=== PATIENT | male | born 1985 | race Caucasian/White ===

== ENCOUNTER 2016-03-28 14:27 | Emergency (ER) | payer MEDICAID ==
[~2016-03-28 14:27] MED LIST: Sodium Chloride 0.9% 1,000 ML BAG ONE
[2016-03-28] MEDS ORDERED: Ondansetron HCl/PF 4 MG/2 ML Vial ONE (15:00)
[2016-03-28 15:06] LABS: #Basophils 0.1 thou/uL (0.0-0.2); #Eosinphils 0.4 thou/uL (0.0-0.7); #Lymphocytes 1.6 thou/uL (1.20-3.40); #Monocytes 0.6 thou/uL (0.11-0.59); #Neutrophils 5.8 thou/uL (1.40-6.50); %Basophils 0.9 % (0.0-1.0); %Eosinophils 5.2 % (0.0-10.0); %Lymphocytes 19.1 % (21.0-51.0); %Monocytes 6.4 % (0.0-10.0); %Neutrophils 68.3 % (42.0-75.0); Hemoglobin 15.8 g/dL (14.0-18.0); Mean Corpuscular HGB CONC 33.4 g/dL (32.0-36.0); Mean Corpuscular Hemoglobin 29.7 pg (27.0-31.0); Mean Corpuscular Volume 88.8 fl (80.0-94.0); Mean Platelet Volume 7.8 fL (7.4-10.4); Platelet Count 246 thou/uL (130-400); RBC Distribution Width 11.9 % (11.5-14.5); Red Blood Cell (RBC) Count 5.33 mill/uL (4.70-6.10); White Blood Cell (WBC) Count 8.5 thou/uL (4.8-10.8)
[2016-03-28 15:22] LABS: ALT (SGPT) 15 U/L (0-55); AST (SGOT) 17 U/L (5-34); Acetaminophen Less than 3.0 mcg/mL (10.0-30.0); Albumin 4.7 g/dL (3.5-5.0); Alcohol Less than 10 mg/dL (Less than 10); Alkaline Phosphatase 52 U/L (40-150); Anion Gap 18 mmol/L (10-20); BUN (Urea Nitrogen) 12 mg/dL (8.9-20.6); Bilirubin, Total 0.4 mg/dL (0.2-1.2); Calc. Creatinine Clearance 0 mL/min (70-130); Calcium 9.5 mg/dL (7.8-10.44); Carbon Dioxide 23 mmol/L (22-29); Chloride 104 mmol/L (98-107); Estimated GFR-MDRD 79; Globulin 2.4 g/dL (2.4-3.5); Glucose 102 mg/dL (70-105); Potassium 3.7 mmol/L (3.5-5.1); Protein, Total 7.1 g/dL (6.0-8.3); Salicylate Less than 5.0 mg/dL (15.0-30.0); Sodium 141 mmol/L (136-145)
[2016-03-28 15:23] LABS: Bilirubin Negative (Negative); Blood, Urine Negative (Negative); Clarity Clear (Clear); Glucose, Urine (Dipstick) Negative (Negative); Leukocyte Negative (Negative); Nitrite Negative (Negative); Protein, Urine (Dipstick) Negative (Neg-Trace); Urobilinogen 0.2 mg/dL (0.2-1.0); pH, Urine 7.5 (5.0-9.0)
[2016-03-28 15:51] LABS: Amphetamine Not Detected (NotDetected); Barbiturates Screen Not Detected (NotDetected); Benzodiazepine Screen Not Detected (NotDetected); Cocaine Metabolite Screen Not Detected (NotDetected); Medtox Control Line Valid? VALID (VALID); Methadone Not Detected (NotDetected); Methamphetamine Not Detected (NotDetected); Opiate Screen Not Detected (NotDetected); Oxycodone Screen Not Detected (NotDetected); Phencyclidine (PCP) Not Detected (NotDetected); THC/Cannabinoid Screen Detected (NotDetected); Tricyclic Screen Not Detected (NotDetected)
--- NOTE | 2016-03-28 23:11 | ERRECORD ---
[facility] EMERGENCY RECORD HPI OVERDOSE (15:35 LHOD) CHIEF COMPLAINT: Patient presents for evaluation of overdose, Intentional suicide attempt, of REMERON, Amount ingested: 15, taken orally, Date and time of ingestion: 03/28--. HISTORIAN: History provided by patient. TIME COURSE: PT REPORTS HE WALKED IN ER HE TOOK 15 15MG REMERON TABLETS TO KILL HIMSELF. DENIES ANY OTHER DRUGS OR ALCOHOL. REPORTS HE IS UPSET ABOUT HIS LIFE AND LIVING NEAR HIS EX-. ASSOCIATED WITH: Associated with depression. ROS (16:08 LHOD) CONSTITUTIONAL: Historian denies fever. EYES: WEARS GLASSES. CARDIOVASCULAR: Historian denies chest pain. RESPIRATORY: Historian denies shortness of breath. GI: Historian denies abdominal pain, denies nausea, denies vomiting. MUSCULOSKELETAL: Negative musculoskeletal review of systems. SKIN: Historian denies rash. NEUROLOGIC: Historian denies focal weakness, denies headache. HEMO/LYMPHATIC: Historian denies easy bruising. PSYCHIATRIC: Historian denies alcohol abuse, reports depression, reports suicidal ideation. NOTES: All systems reviewed, negative except as described above. PAST MEDICAL HISTORY MEDICAL HISTORY: Notes: VERIFIED 03-28-16, Past medical history includes history of hypertension. hydrocephalus. (14:41 JPER) MALE SURGICAL HISTORY: VERIFIED 03-28-16, CROSSED EYE REPAIR. WISDOM TEETH REMOVAL.. HEAD shunt with removal. (14:41 JPER) PSYCHIATRIC HISTORY: Notes: VERIFIED 03-28-16, Psychiatric history includes, schizophrenia, PARANOIA, Psychiatric history includes, bipolar disorder. MULTIPLE SUICIDE IDEATION... (14:41 JPER) SOCIAL HISTORY: Social History includes VERIFIED 03-28-16, Patient currently uses drugs, abuses marijuana, Patient currently uses tobacco, Patient smokes cigarettes, Patient smokes 1/2 packs per day, Patient denies alcohol use,. (14:41 JPER) NOTES: Nursing records reviewed, REPORTS HX OF DEPRESSION WITHOUT PREVIOUS HOSPITALIZATION ALTHOUGH HE REPORTS HE WANTED TO BE 1 YEAR AGO. SEE PSYCHIATRIST AT [facility] HERE IN [place]. (16:21 LHOD) KNOWN ALLERGIES ALLERGIES: (Unconfirmed) No Known Drug Allergies No Known Drug Allergy (Unconfirmed) &a-1R&a+25V*p+0X*[id number]*c202B*c15G*c2P*p-0X&a-25V&a+1R Name: Paul Alexandre : 1985 M31 MedRec: [id number] AcctNum: [id number] Prepared: SatMar 28, 2016 23:15 by Interface Page 1 of 4 pMD [facility] EMERGENCY RECORD CURRENT MEDICATIONS (14:58 JPER) Cymbalta: CAPSULE,DELAYED RELEASE (ENTERIC COATED) : Strength - 60 mg : ORAL Patient Dose: 60 mg Oral once a day. Geodon: CAPSULE : Strength - 80 mg : ORAL Patient Dose: 80 mg Oral 2 times a day. lithium carbonate: CAPSULE : Strength - 150 mg : ORAL Patient Dose: 2 times a day (before meals). Remeron: TABLET : Strength - 15 mg : ORAL Patient Dose: once a day (in the morning). VITAL SIGNS VITAL SIGNS: BP: 144/90, Pulse: 96, Resp: 20, Temp: 98.2 (Tympanic), O2 sat: 99 on Room Air, Time: 03/28/2016 14:39. (14:39 JPER) BP: 139/87, Pulse: 80, Resp: 20, Temp: 98.2 (Tympanic), O2 sat: 98 on Room Air, Time: 03/28/2016 15:00. (15:00 JPER) BP: 143/73, Pulse: 90, Resp: 20, O2 sat: 99 on Room Air, Time: 03/28/2016 15:30. (15:30 JPER) BP: 111/71, Pulse: 96, Resp: 18, O2 sat: 99 on Room Air, Time: 03/28/2016 16:00. (16:00 JPER) BP: 131/71, Pulse: 83, Resp: 28, O2 sat: 98 on Room Air, Time: 03/28/2016 16:30. (16:30 JPER) BP: 140/74, Pulse: 98, Resp: 26, Temp: 98.4 (Tympanic), O2 sat: 98 on Room Air, Time: 03/28/2016 17:00. (17:00 JPER) BP: 118/66, Pulse: 73, Resp: 25, O2 sat: 98 on Room Air, Time: 03/28/2016 17:30. (17:30 JPER) BP: 142/91, Pulse: 67, Resp: 24, O2 sat: 99 on Room Air, Time: 03/28/2016 20:10. (20:10 CJEF) BP: 119/76, Pulse: 71, Resp: 24, Temp: 98.4 (Oral), Pain: 0, O2 sat: 99 on Room Air, Time: 03/28/2016 18:15. (18:15 CJEF) PHYSICAL EXAM (16:15 LHOD) CONSTITUTIONAL: Vital signs reviewed, Patient afebrile, Pulse normal, Blood pressure normal, Respiratory rate normal, Patient appears non toxic, Patient alert and oriented to person, place and time, AWAKE, ALERT. HEAD: Head exam included findings of head atraumatic. EYES: Pupils equally round and reactive to light, Extraocular muscles intact. ENT: Pharynx exam normal. NECK: Neck exam included findings of normal range of motion, Trachea midline. RESPIRATORY CHEST: Respiratory exam included findings of no respiratory distress, Breath sounds clear. CARDIOVASCULAR: Cardiovascular exam included findings of heart &a-1R&a+25V*p+0X*[id number]*c202B*c15G*c2P*p-0X&a-25V&a+1R Name: Paul Alexandre : 1985 M31 MedRec: [id number] AcctNum: [id number] Prepared: SatMar 28, 2016 23:15 by Interface Page 2 of 4 pMD [facility] EMERGENCY RECORD rate regular rate and rhythm, Heart sounds normal. ABDOMEN MALE: Abdominal exam included findings of abdomen nontender, Bowel sounds normal. BACK: Back exam normal. UPPER EXTREMITY: Upper extremity exam normal. LOWER EXTREMITY: Lower extremity exam normal. NEURO: Neuro exam findings include patient oriented to person, place and time, Speech normal, Memory normal. SKIN: no rash. PSYCHIATRIC: Psychiatric exam included findings of patient oriented to person place and time, Normal affect, Suicidal ideations present, has a plan, PILL INGESTION, No homicidal ideations. EKG INTERPRETATION (16:22 LHOD) 12 LEAD EKG INTERPRETATION: 12 lead EKG interpreted by Emergency Department Physician at time of study, 12 lead EKG shows normal sinus rhythm, Rate (beats per minute): 97, with no ectopics, T waves, flattened, DIFFUSE NON-SPECIFIC FLATTENING OF T WAVES, [place] normal. MEDICATION ADMINISTRATION SUMMARY Drug Name: Zofran intravenous, Dose Ordered: 8 mg, Route: IV Push, Status: Given, Time: 15:31 03/28/2016, Drug Name: Normal Saline, Dose Ordered: 150 mL/hr, Route: IV Fluid Infusion, Status: Given, Time: 15:15 03/28/2016, Drug Name: activated charcoal oral, Dose Ordered: 30 g, Route: Oral, Status: Given, Time: 14:59 03/28/2016, Detailed record available in Medication Service section. DOCTOR NOTES (16:07 LHOD) TEXT: 1606--PT STABLE. ADVISED HE WILL BE OBSERVED A FULL 2 HOURS PRIOR TO CALLING PSYCH SUPPLIER ENGINEER. 2012--[facility]DHA WITH [facility] CONTACTING [facility] FOR POSSIBLE ADMISSION. PT SITTING ON STRETCHER, DRINKING GATORADE. 2119--STILL AWAITING [facility] APPROVAL FOR TRANSFER. PROBLEM LIST No recorded problems DIAGNOSIS (21:26 LHOD) FINAL: PRIMARY: SUICIDAL IDEATION WITH NON-TOXIC INGESTION OF REMERON. PRESCRIPTION No recorded prescriptions DISPOSITION PATIENT: Disposition Type: Transfer, Disposition: [facility] &a-1R&a+25V*p+0X*[id number]*c202B*c15G*c2P*p-0X&a-25V&a+1R Name: Paul Alexandre : 1985 [facility] [place] MedRec: [id number] AcctNum: [id number] Prepared: SatMar 28, 2016 23:15 by Interface Page 3 of 4 pMD [facility] EMERGENCY RECORD Behavioral Health, Condition: Good. (21:26 LHOD) Disposition Transport: Police. (23:07 ADEA) Patient left the department. (23:07 ADEA) Scott: CHALINO=JOVANNI Orta, Jaime GODWIN=JOVANNI Stanton, Kendy EVANS=JOVANNI Vizcaino, Meenakshi LHOD=MD Kerrie, Ezra &a-1R&a+25V*p+0X*[id number]*c202B*c15G*c2P*p-0X&a-25V&a+1R Name: Paul Alexandre : 1985 M31 MedRec: [id number] AcctNum: [id number] Prepared: Chung Mar 28, 2016 23:15 by Interface Page 4 of 4 pMD MTDD
--- NOTE | 2016-03-28 23:17 | PICIS ---
[facility] EMERGENCY RECORD COMMUNICATIONS (21:25 LHOD) COMMUNICATIONS: Notes: 2124--DISCUSSED WITH ROCK HINDS, PSYCHIATRIST, ,ACCEPTS FOR TRANSFER. TRIAGE (14:41 JPER) PATIENT: AGE: 31, GENDER: male, : Sat1985, TIME OF GREET: SatMar 28, 2016 14:29, PREFERRED LANGUAGE: Luxembourgish, RACE: WHITE, ETHNICITY: Not or , ECODE BILLING MAP: [facility], SSN: [id number], Zip Code: [address], KG WEIGHT: 74.84 (est.), PHONE: , , , PERSON ID: [id number], PCP: NO PCP. (14:41 JPER) NAME: Baldomero Paul RobbinsSergei (15:14) COMPLAINT: TOOK A HAND FULL OF PILLS. (14:41 JPER) ADMISSION: URGENCY: 3 Urgent, ADMISSION SOURCE: Home, TRANSPORT: Walk-in, BED: ED -01. (14:41 JPER) ASSESSMENT: Assessment: PT SAYS HE IS SUICIDAL AND HAS BEEN X 2 WEEKS; SAYS HE SWALLOWED APPROX 15 15MG REMERON PILLS ABOUT 45 MIN PAST. (14:41 JPER) IMMUNIZATIONS: Flu vaccine not up to date, Tetanus not up to date, Pneumococcal vaccine not up to date. (14:41 JPER) SIRS SCORING: Heart Rate 55-109 (0), Temp range 96.8-101.1 (0), respiratory rate 12-24 (0), Mental Status altered: no (0). (14:41 JPER) TRIAGE SCREENING: Suicide risk, Unable to assess, SAYS HE IS SUICIDAL. (14:41 JPER) PROVIDERS: TRIAGE NURSE: Meenakshi Vizcaino RN. (14:41 JPER) VITAL SIGNS: BP 144/90, Pulse 96, Resp 20, Temp 98.2, (Tympanic), O2 Sat 99, on Room Air, Time 03/28/2016 14:39. (14:39 JPER) PREVIOUS VISIT ALLERGIES: ALLERGIES:. (14:41 JPER) KNOWN ALLERGIES ALLERGIES: (Unconfirmed) No Known Drug Allergies No Known Drug Allergy (Unconfirmed) CURRENT MEDICATIONS (14:58 JPER) Cymbalta: CAPSULE,DELAYED RELEASE (ENTERIC COATED) : Strength - 60 mg : ORAL Patient Dose: 60 mg Oral once a day. Geodon: CAPSULE : Strength - 80 mg : ORAL Patient Dose: 80 mg Oral 2 times a day. lithium carbonate: CAPSULE : Strength - 150 mg : ORAL Patient Dose: 2 times a day (before meals). Remeron: TABLET : Strength - 15 mg : ORAL Patient Dose: once a day (in the morning). &a-1R&a+25V*p+0X*m7354O*c202B*c15G*c2P*p-0X&a-25V&a+1R Name: Paul Alexandre : 1985 M31 MedRec: [id number] AcctNum: [id number] Prepared: SatMar 28, 2016 23:22 by Interface Page 1 of 12 pMD [facility] EMERGENCY RECORD VITAL SIGNS VITAL SIGNS: BP: 144/90, Pulse: 96, Resp: 20, Temp: 98.2 (Tympanic), O2 sat: 99 on Room Air, Time: 03/28/2016 14:39. (14:39 JPER) BP: 139/87, Pulse: 80, Resp: 20, Temp: 98.2 (Tympanic), O2 sat: 98 on Room Air, Time: 03/28/2016 15:00. (15:00 JPER) BP: 143/73, Pulse: 90, Resp: 20, O2 sat: 99 on Room Air, Time: 03/28/2016 15:30. (15:30 JPER) BP: 111/71, Pulse: 96, Resp: 18, O2 sat: 99 on Room Air, Time: 03/28/2016 16:00. (16:00 JPER) BP: 131/71, Pulse: 83, Resp: 28, O2 sat: 98 on Room Air, Time: 03/28/2016 16:30. (16:30 JPER) BP: 140/74, Pulse: 98, Resp: 26, Temp: 98.4 (Tympanic), O2 sat: 98 on Room Air, Time: 03/28/2016 17:00. (17:00 JPER) BP: 118/66, Pulse: 73, Resp: 25, O2 sat: 98 on Room Air, Time: 03/28/2016 17:30. (17:30 JPER) BP: 142/91, Pulse: 67, Resp: 24, O2 sat: 99 on Room Air, Time: 03/28/2016 20:10. (20:10 CJEF) BP: 119/76, Pulse: 71, Resp: 24, Temp: 98.4 (Oral), Pain: 0, O2 sat: 99 on Room Air, Time: 03/28/2016 18:15. (18:15 CJEF) NURSING ASSESSMENT: PSYCH/SOCIAL (14:45 JPER) CONSTITUTIONAL: Patient arrives ambulatory, Gait steady, History obtained from patient, Patient appears comfortable, Patient cooperative, Patient alert, Oriented to person, place and time, Skin warm, Skin dry, Skin normal in color, Mucous membranes pink, Mucous membranes moist, Patient complains of STATED INGESTED APPROX #15 15 MG REMERON. PSYCH/SOCIAL: Psychiatric/social assessment findings include affect normal, Suicidal ideations present, with plan, INGESTION. SUICIDE RISK ASSESSMENT TOOL: Suicide Risk Assessment findings: Mental State (Moderate risk):, moderate depression, some sadness, some symptoms of psychosis, some feelings of hopelessness, moderate anger, hostility, Suicide Attempt or Suicidal Thoughts (Moderate risk):, multiple attempts of low lethality, Substance Disorder (Moderate risk):, risk of substance intoxication, abuse or dependence, Corroborative History (Moderate risk):, access to some information, some doubts to plausibility of person's account of events, Strengths and Support (Moderate risk):, moderate connectedness, few relationships, Reflective Practice (High risk):, high changeability, no rapport established with patient, not able to engage patient, Suicide Risk: Moderate:, charge nurse notified, This person's risk level is highly changeable, There are factors that indicate a level of uncertainty in this risk assessment, indicating a &a-1R&a+25V*p+0X*j9992O*c202B*c15G*c2P*p-0X&a-25V&a+1R Name: Paul Alexandre : 1985 M31 MedRec: [id number] AcctNum: [id number] Prepared: SatMar 28, 2016 23:22 by Interface Page 2 of 12 pMD [facility] EMERGENCY RECORD low assessment confidence. NOTES: Emotional support needed and given, Patient tolerated procedure well. NURSING PROCEDURE: AIRPLANE MECHANIC (14:45 JPER) PATIENT IDENTIFIER: Patient's identity verified by patient stating name, Patient's identity verified by hospital ID bracelet. AIRPLANE MECHANIC: Cardiac monitoring indicated for INGESTION, Patient placed on night monitor, Heart rate: 100, Patient placed on non-invasive blood pressure monitor, with disposable blood pressure cuff applied, Patient placed on continuous pulse oximetry, Adult/pediatric oxisensor applied, Oxygen saturation 98%. FOLLOW-UP: After procedure, alarms set and on, After procedure, patient tolerating monitoring. NOTES: Emotional support needed and given, Patient tolerated procedure well. NURSING PROCEDURE: COMMUNICATIONS COMMUNICATIONS: Psychiatric screening consult, Name of screener MEL, [facility] PHONED REQUESTED SCREENER, Crisis counselor, Notes: 1745 MEL FROM [facility] ON SCENE. (17:00 JPER) Notes: [facility] contacted by Mel with [facility] for placement, lab work faxed per request. (18:40 ADEA) Notes: DR AGUIRRE WITH [facility] ACCEPTING PATIENT WITH LIU BOYKIN. (21:25 ADEA) NURSING PROCEDURE: EKG CHART (15:34 JPER) PATIENT IDENTIFIER: Patient's identity verified by patient stating name, Patient's identity verified by hospital ID bracelet. EK lead EKG performed on the left chest, done by FRANKO BAIG, first EKG. FOLLOW-UP: After procedure, EKG for interpretation given to Dr. SY. NOTES: Emotional support needed and given, Patient tolerated procedure well. NURSING PROCEDURE: INTAKE AND OUTPUT (19:08 MCRS) INTAKE AND OUTPUT: Total Intake (ml): 0ml, Urine output(ml): 1500, Total Output (ml): 1500ml, Grand Total: Output is greater than intake by 1500mls. SAFETY: Side rails up, Cart/Stretcher in lowest position, Family at bedside, Call light within reach, Hospital ID band on. NURSING PROCEDURE: IV PATIENT IDENITIFIER: Patient's identity verified by patient stating name, Patient's identity verified by hospital ID bracelet. (15:10 JPER) IV SITE 1: IV therapy indicated for hydration, Saline lock established, Labs drawn at time of placement, labeled in the presence of the patient and sent to lab. (15:10 JPER) &a-1R&a+25V*p+0X*l2342O*c202B*c15G*c2P*p-0X&a-25V&a+1R Name: Paul Alexandre : 1985 M31 MedRec: [id number] AcctNum: [id number] Prepared: SatMar 28, 2016 23:22 by Interface Page 3 of 12 pMD [facility] EMERGENCY RECORD FOLLOW-UP SITE 1: After procedure, sterile transparent dressing applied. (15:10 JPER) IV discontinued, by patient, catheter intact, Notes: ANGRY WITH [facility] - MD APPLIED DRESSING - BLEEDING CONTROLED. (18:30 MCRS) NURSING PROCEDURE: NURSE NOTES NURSES NOTES: Notes: PT COOPERATIVE WITH CARE; RESTING ON GURNEY; VSS. (16:00 JPER) Notes: PATIENT REFUSING VITAL SIGNS AND PULLED IV OUT.. ANGRY WITH MR WORKER... NO AGGRESSIVE BEHAVIOR AT THIS TIME. (19:06 MCRS) Notes: WAITING FOR ACCEPTANCE TO INSTITUTION FOR MENTAL HEALTH EVAL AND TREAT.. ALLOWED VITAL SIGNS TO BE TAKEN - DRESSED AND WAITING ON STRETCHER.. (20:13 MCRS) Notes: patient accepted at [facility]... (21:25 MCRS) Notes: PENDING ARRIVAL OF TRANSPORT DEPUTY. (21:53 ADEA) Notes: transport from [facility] arrived and took custody of patient for transfer to [facility].. ambulated out of ER with no distress... (22:43 MCRS) NURSING PROCEDURE: TRANSFER (21:43 ADEA) TRANSFER: Reason for transfer need for specialized care, Diagnosis: BIPOLAR DISORDER WITH SUICIDAL IDEATIONS, Accepting institution: [facility], Accepting physician: TIMOTHY, Referring physician: Kerrie, Transported by, [facility], Report called to receiving facility, PATT, Provided opportunity to answer questions. ORDER DETAILS Order Name: Acetaminophen, Status: Active, Time: 14:52 03/28/2016, User: LHOD, - Ordered for: MD Sy Lefayne, - Entered by: MD Sy Lefayne - SatMar 28, 2016 14:52, - Quantity: 1, Order Name: Alcohol, Status: Active, Time: 14:52 03/28/2016, User: TOM, - Ordered for: MD Sy Lefayne, - Entered by: MD Sy Lefayne - SatMar 28, 2016 14:52, - Quantity: 1, Order Name: AIRPLANE MECHANIC ED, Status: Done, Time: 15:11 03/28/2016, User: CRISTINA, - Ordered for: MD Sy Lefayne, - Entered by: MD Sy Lefayne - SatMar 28, 2016 14:50, - Quantity: 1, Order Name: CBC with Differential, Status: Active, Time: 14:50 03/28/2016, User: TOM, - Ordered for: MD Sy Lefayne, - Entered by: MD Sy Lefayne - SatMar 28, 2016 14:50, &a-1R&a+25V*p+0X*e3161E*c202B*c15G*c2P*p-0X&a-25V&a+1R Name: Paul Alexandre : 1985 M31 MedRec: [id number] AcctNum: [id number] Prepared: SatMar 28, 2016 23:22 by Interface Page 4 of 12 pMD [facility] EMERGENCY RECORD - Quantity: 1, Order Name: Comprehensive Metabolic Panel, Status: Active, Time: 14:50 03/28/2016, User: TOM, - Ordered for: MD Sy Lefayne, - Entered by: MD Sy Lefayne - SatMar 28, 2016 14:50, - Quantity: 1, Order Name: Drug Screen, Urine, Status: Active, Time: 14:52 03/28/2016, User: TOM, - Ordered for: MD Sy Lefayne, - Entered by: MD Sy Lefayne - SatMar 28, 2016 14:52, - Quantity: 1, Order Name: EKG 12 Lead in Emergency Room, Status: Active, Time: 14:50 03/28/2016, User: TOM, - Ordered for: MD Sy Lefayne, - Entered by: MD Sy Lefayne - SatMar 28, 2016 14:50, - Quantity: 1, Order Name: Salicylate, Status: Active, Time: 14:52 03/28/2016, User: TOM, - Ordered for: MD Sy Lefayne, - Entered by: MD Sy Lefayne - SatMar 28, 2016 14:52, - Quantity: 1, Order Name: SALINE LOCK, Status: Done, Time: 15:11 03/28/2016, User: CRISTINA, - Ordered for: MD Sy Lefayne, - Entered by: MD Sy Lefayne - SatMar 28, 2016 14:50, - Quantity: 1, Order Name: Urinalysis w/ Rflx Microscopic, Status: Active, Time: 14:52 03/28/2016, User: TOM, - Ordered for: MD Sy Lefayne, - Entered by: MD Sy Lefayne - SatMar 28, 2016 14:52, - Quantity: 1. MEDICATION ADMINISTRATION SUMMARY Drug Name: Zofran intravenous, Dose Ordered: 8 mg, Route: IV Push, Status: Given, Time: 15:31 03/28/2016, Drug Name: Normal Saline, Dose Ordered: 150 mL/hr, Route: IV Fluid Infusion, Status: Given, Time: 15:15 03/28/2016, Drug Name: activated charcoal oral, Dose Ordered: 30 g, Route: Oral, Status: Given, Time: 14:59 03/28/2016, Detailed record available in Medication Service section. MEDICATION SERVICE activated charcoal oral: Order: activated charcoal oral (activated charcoal) - Dose: 30 g : Oral Ordered by: Ezra Sy MD Entered by: Ezra Sy MD SatMar 28, 2016 14:50 Documented as given by: Meenakshi Vizcaino RN SatMar 28, 2016 14:59 Patient, Medication, Dose, Route and Time verified prior to administration. &a-1R&a+25V*p+0X*y0845F*c202B*c15G*c2P*p-0X&a-25V&a+1R Name: Paul Alexandre : 1985 M31 MedRec: [id number] AcctNum: [id number] Prepared: SatMar 28, 2016 23:22 by Interface Page 5 of 12 pMD [facility] EMERGENCY RECORD Amount given: 30GM, Site: Medication administered P.O., Correct patient, time, route, dose and medication confirmed prior to administration, Patient advised of actions and side-effects prior to administration, Allergies confirmed and medications reviewed prior to administration, Administered by FRANKO BAIG, Patient in position of comfort, Side rails up, Cart in lowest position. : Follow Up : Response assessment performed, No signs or symptoms of allergic reaction noted, No change in symptoms. (22:43 MCRS) Normal Saline: Order: Normal Saline (0.9 % sodium chloride) - Dose: 150 mL/hr : IV Fluid Infusion Ordered by: Ezra Sy MD Entered by: Ezra Sy MD SatMar 28, 2016 14:51 Documented as given by: Meenakshi Vizcaino RN SatMar 28, 2016 15:15 Patient, Medication, Dose, Route and Time verified prior to administration. Amount given: 1000ML, IV SITE #1 IV fluids established for hydration, IV SITE #1 into left antecubital, IV SITE #1 1st bag hung, amount 1 Liter hung, IV SITE #1 Rate of infusion (non-bolus) Infusing at 150 ml/hr, via primary tubing, IV SITE #1 on IV pump, Administered by FRANKO BAIG. : Follow Up : Response assessment performed, No signs or symptoms of allergic reaction noted, No change in symptoms, _IV SITE #1:_, on SatMar 28, 2016 18:33, Total infusion time IV site 1 3 hours, 20 minutes, ., IV fluid infusion discontinued, on SatMar 28, 2016 18:33, Total fluid hydration time IV site 1 3 hours, 20 minutes, ., Total amount infused: 450, IV Discontinued with catheter intact. (18:33 MCRS) Zofran intravenous: Order: Zofran intravenous (ondansetron HCl) - Dose: 8 mg : IV Push Ordered by: Ezra Sy MD Entered by: Ezra Sy MD SatMar 28, 2016 14:51 Documented as given by: Meenakshi Vizcaino RN SatMar 28, 2016 15:31 Patient, Medication, Dose, Route and Time verified prior to administration. Amount given: 8MG, IV SITE #1 IVP, initial medication, Slowly, Administered by FRANKO BAIG. : Follow Up : Response assessment performed, No signs or symptoms of allergic reaction noted, No change in symptoms, _IV SITE #1:_. (22:43 MCRS) HPI OVERDOSE (15:35 LHOD) CHIEF COMPLAINT: Patient presents for evaluation of overdose, Intentional suicide attempt, of REMERON, Amount ingested: 15, taken orally, Date and time of ingestion: 03/28--. HISTORIAN: History provided by patient. TIME COURSE: PT REPORTS HE WALKED IN ER HE TOOK 15 15MG REMERON TABLETS TO KILL HIMSELF. DENIES ANY OTHER DRUGS OR ALCOHOL. REPORTS HE IS UPSET ABOUT HIS LIFE AND LIVING NEAR HIS EX-. &a-1R&a+25V*p+0X*y4826W*c202B*c15G*c2P*p-0X&a-25V&a+1R Name: Paul Alexandre : 1985 M31 MedRec: [id number] AcctNum: [id number] Prepared: SatMar 28, 2016 23:22 by Interface Page 6 of 12 pMD [facility] EMERGENCY RECORD ASSOCIATED WITH: Associated with depression. ROS (16:08 LHOD) CONSTITUTIONAL: Historian denies fever. EYES: WEARS GLASSES. CARDIOVASCULAR: Historian denies chest pain. RESPIRATORY: Historian denies shortness of breath. GI: Historian denies abdominal pain, denies nausea, denies vomiting. MUSCULOSKELETAL: Negative musculoskeletal review of systems. SKIN: Historian denies rash. NEUROLOGIC: Historian denies focal weakness, denies headache. HEMO/LYMPHATIC: Historian denies easy bruising. PSYCHIATRIC: Historian denies alcohol abuse, reports depression, reports suicidal ideation. NOTES: All systems reviewed, negative except as described above. PAST MEDICAL HISTORY MEDICAL HISTORY: Notes: VERIFIED 03-28-16, Past medical history includes history of hypertension. hydrocephalus. (14:41 JPER) MALE SURGICAL HISTORY: VERIFIED 03-28-16, CROSSED EYE REPAIR. WISDOM TEETH REMOVAL.. HEAD shunt with removal. (14:41 JPER) PSYCHIATRIC HISTORY: Notes: VERIFIED 03-28-16, Psychiatric history includes, schizophrenia, PARANOIA, Psychiatric history includes, bipolar disorder. MULTIPLE SUICIDE IDEATION... (14:41 JPER) SOCIAL HISTORY: Social History includes VERIFIED 1-25-17, Patient currently uses drugs, abuses marijuana, Patient currently uses tobacco, Patient smokes cigarettes, Patient smokes 1/2 packs per day, Patient denies alcohol use,. (14:41 JPER) NOTES: Nursing records reviewed, REPORTS HX OF DEPRESSION WITHOUT PREVIOUS HOSPITALIZATION ALTHOUGH HE REPORTS HE WANTED TO BE 1 YEAR AGO. SEE PSYCHIATRIST AT [facility] HERE IN [place]. (16:21 LHOD) PHYSICAL EXAM (16:15 LHOD) CONSTITUTIONAL: Vital signs reviewed, Patient afebrile, Pulse normal, Blood pressure normal, Respiratory rate normal, Patient appears non toxic, Patient alert and oriented to person, place and time, AWAKE, ALERT. HEAD: Head exam included findings of head atraumatic. EYES: Pupils equally round and reactive to light, Extraocular muscles intact. ENT: Pharynx exam normal. NECK: Neck exam included findings of normal range of motion, Trachea midline. RESPIRATORY CHEST: Respiratory exam included findings of no respiratory distress, Breath sounds clear. &a-1R&a+25V*p+0X*z2930J*c202B*c15G*c2P*p-0X&a-25V&a+1R Name: Paul Alexandre : 1985 M31 MedRec: [id number] AcctNum: [id number] Prepared: SatMar 28, 2016 23:22 by Interface Page 7 of 12 pMD [facility] EMERGENCY RECORD CARDIOVASCULAR: Cardiovascular exam included findings of heart rate regular rate and rhythm, Heart sounds normal. ABDOMEN MALE: Abdominal exam included findings of abdomen nontender, Bowel sounds normal. BACK: Back exam normal. UPPER EXTREMITY: Upper extremity exam normal. LOWER EXTREMITY: Lower extremity exam normal. NEURO: Neuro exam findings include patient oriented to person, place and time, Speech normal, Memory normal. SKIN: no rash. PSYCHIATRIC: Psychiatric exam included findings of patient oriented to person place and time, Normal affect, Suicidal ideations present, has a plan, PILL INGESTION, No homicidal ideations. LAB INTERPRETATION (16:35 LHOD) INTERPRETATION: I reviewed the lab results, CBC normal, Chemistry normal, Urinalysis normal, Urine toxicology, positive for cannabinoids, Alcohol level negative, by blood level, Aspirin level therapeutic, Tylenol level therapeutic. EVENTS TRANSFER: Triage to Emergency Main ED -01. (SatMar 28, 2016 14:41 JPER) Removed from Emergency Main ED -01. (23:07 ADEA) EKG INTERPRETATION (16:22 LHOD) 12 LEAD EKG INTERPRETATION: 12 lead EKG interpreted by Emergency Department Physician at time of study, 12 lead EKG shows normal sinus rhythm, Rate (beats per minute): 97, with no ectopics, T waves, flattened, DIFFUSE NON-SPECIFIC FLATTENING OF T WAVES, [place] normal. DOCTOR NOTES (16:07 LHOD) TEXT: 1606--PT STABLE. ADVISED HE WILL BE OBSERVED A FULL 2 HOURS PRIOR TO CALLING PSYCH PHARMACOLOGY PROFESSOR. 2012--MEL WITH [facility] CONTACTING [facility] FOR POSSIBLE ADMISSION. PT SITTING ON STRETCHER, DRINKING GATORADE. 2119--STILL AWAITING [facility] APPROVAL FOR TRANSFER. PROBLEM LIST No recorded problems DIAGNOSIS (21:26 LHOD) FINAL: PRIMARY: SUICIDAL IDEATION WITH NON-TOXIC INGESTION OF REMERON. DISPOSITION PATIENT: Disposition Type: Transfer, Disposition: [facility], Condition: Good. (21:26 LHOD) &a-1R&a+25V*p+0X*z2126M*c202B*c15G*c2P*p-0X&a-25V&a+1R Name: Paul Alexandre : 1985 M31 MedRec: [id number] AcctNum: [id number] Prepared: SatMar 28, 2016 23:22 by Interface Page 8 of 12 pMD [facility] EMERGENCY RECORD Disposition Transport: Police. (23:07 ADEA) Patient left the department. (23:07 ADEA) PRESCRIPTION No recorded prescriptions IMAGING *EKG: Image captured from scanner. (19:47 [facility]) *MEMORANDUM OF TRANSFER: Image captured from scanner. (21:55 ADEA) [facility] EVAL: Image captured from scanner. (22:19 ADEA) Page 2 added. Image captured from scanner. (22:20 ADEA) Page 3 added. Image captured from scanner. (22:20 ADEA) Page 4 added. Image captured from scanner. (22:20 ADEA) Page 5 added. Image captured from scanner. (22:21 ADEA) TRANSFER WORKSHEET: Image captured from scanner. (22:46 ADEA) Page 2 added. Image captured from scanner. (22:46 ADEA) ADMIN DIGITAL SIGNATURE: MD Kerrie, Ezra. (23:06 LHOD) JOVANNI Pearson, Sylvester. (23:12 [facility]) RESULTS LABORATORY: CBC with Differential Collection DT: SatMar 28, 2016 15:00, White Blood Cell (WBC) Count 8.5 thou/uL, Range (4.8-10.8), Red Blood Cell (RBC) Count 5.33 mill/uL, Range (4.70-6.10), Hemoglobin 15.8 g/dL, Range (14.0-18.0), Hematocrit 47.3 %, Range (42.0-52.0), Mean Corpuscular Volume 88.8 fl, Range (80.0-94.0), Mean Corpuscular Hemoglobin 29.7 pg, Range (27.0-31.0), Mean Corpuscular HGB CONC 33.4 g/dL, Range (32.0-36.0), RBC Distribution Width 11.9 %, Range (11.5-14.5), Platelet Count 246 thou/uL, Range (130-400), Mean Platelet Volume 7.8 fL, Range (7.4-10.4), %Neutrophils 68.3 %, Range (42.0-75.0), *%Lymphocytes 19.1 - L %, Range (21.0-51.0), %Monocytes 6.4 %, Range (0.0-10.0), %Eosinophils 5.2 %, Range (0.0-10.0), %Basophils 0.9 %, Range (0.0-1.0), #Neutrophils 5.8 thou/uL, Range (1.40-6.50), #Lymphocytes 1.6 thou/uL, Range (1.20-3.40), *#Monocytes 0.6 - H thou/uL, Range (0.11-0.59), #Eosinphils 0.4 thou/uL, Range (0.0-0.7), #Basophils 0.1 thou/uL, Range (0.0-0.2). (15:13 LHOD) Urinalysis w/ Rflx Microscopic Collection DT: SatMar 28, 2016 15:20, Color Yellow , Range (Yellow), Clarity Clear , Range (Clear), Specific [place], Urine 1.020 , Range (1.005-1.030), pH, Urine 7.5 , Range (5.0-9.0), &a-1R&a+25V*p+0X*i6097X*c202B*c15G*c2P*p-0X&a-25V&a+1R Name: Paul Alexandre : 1985 M31 MedRec: [id number] AcctNum: [id number] Prepared: SatMar 28, 2016 23:22 by Interface Page 9 of 12 pMD [facility] EMERGENCY RECORD Leukocyte Negative , Range (Negative), Nitrite Negative , Range (Negative), Protein, Urine (Dipstick) Negative mg/dL, Range (Neg-Trace), Glucose, Urine (Dipstick) Negative mg/dL, Range (Negative), *Ketone, Urine 15 - H mg/dL, Range (Negative), Urobilinogen 0.2 mg/dL, Range (0.2-1.0), Bilirubin Negative , Range (Negative), Blood, Urine Negative , Range (Negative). (15:33 LHOD) Salicylate Collection DT: SatMar 28, 2016 15:00, *Salicylate Less than 5.0 - L mg/dL, Range (15.0-30.0). (15:33 LHOD) Alcohol Collection DT: SatMar 28, 2016 15:00, Alcohol Less than 10 mg/dL, Range (Less than 10), The pharmacological response to blood alcohol levels may vary from, individual to individual. Negative: Less than 10, mg/dL Toxic: 50 - 100 mg/dL , Depression of HUMAN RESOURCES DIRECTOR: Greater than 100 mg/dL , Fatalities reported: Greater than 400 mg/dL . (15:33 LHOD) Acetaminophen Collection DT: SatMar 28, 2016 15:00, *Acetaminophen Less than 3.0 - L mcg/mL, Range (10.0-30.0), Therapeutic Range: 10.0 - 30.0 ug/mL Toxic Range: Possible, toxicity: 150 - 200 ug/mL Probable toxicity: Greater than 200, ug/mL *IMPORTANT TESTING INFORMATION* The half-life of NAC is 2, hours. The total NAC clearance is 5.6 hours for adults and 11 hours for, Newborns. Testing acetaminophen levels prior to a reasonable time frame, for clearance can cause falsely decreased acetaminophen levels. . (15:33 LHOD) Comprehensive Metabolic Panel Collection DT: SatMar 28, 2016 15:00, Sodium 141 mmol/L, Range (136-145), Potassium 3.7 mmol/L, Range (3.5-5.1), Chloride 104 mmol/L, Range (98-107), Carbon Dioxide 23 mmol/L, Range (22-29), Anion Gap 18 mmol/L, Range (10-20), BUN (Urea Nitrogen) 12 mg/dL, Range (8.9-20.6), Creatinine 1.08 mg/dL, Range (0.7-1.3), Estimated GFR-MDRD 79 , Reference Range for Estimated GFR: Greater than 90, mL/min/1.73 m2 NOTE: &a-1R&a+25V*p+0X*d0662R*c202B*c15G*c2P*p-0X&a-25V&a+1R Name: Paul Alexandre : 1985 M31 MedRec: [id number] AcctNum: [id number] Prepared: SatMar 28, 2016 23:22 by Interface Page 10 of 12 pMD [facility] EMERGENCY RECORD The MDRD equation has not been validated for use, with the elderly (over 70 years of age), women, patients with, serious comorbid condition or persons with extremes of body size, muscle, mass, or nutritional status. , Glucose 102 mg/dL, Range (70-105), Calcium 9.5 mg/dL, Range (7.8-10.44), Bilirubin, Total 0.4 mg/dL, Range (0.2-1.2), Protein, Total 7.1 g/dL, Range (6.0-8.3), NOTE: Plasma values are generally 0.3 to 0.5 g/dL higher than serum values, due to the presence of fibrinogen. , Albumin 4.7 g/dL, Range (3.5-5.0), Globulin 2.4 g/dL, Range (2.4-3.5), Alb/Glob Ratio 2.0 g/dL, Range (1.2-2.2), Alkaline Phosphatase 52 U/L, Range (40-150), AST (SGOT) 17 U/L, Range (5-34), ALT (SGPT) 15 U/L, Range (0-55). (15:33 LHOD) Drug Screen, Urine Collection DT: SatMar 28, 2016 15:20, *THC/Cannabinoid Screen Detected - H , Range (NotDetected), Phencyclidine (PCP) Not Detected , Range (NotDetected), Cocaine Metabolite Screen Not Detected , Range (NotDetected), Methamphetamine Not Detected , Range (NotDetected), Opiate Screen Not Detected , Range (NotDetected), Amphetamine Not Detected , Range (NotDetected), Benzodiazepine Screen Not Detected , Range (NotDetected), Tricyclic Screen Not Detected , Range (NotDetected), Methadone Not Detected , Range (NotDetected), Barbiturates Screen Not Detected , Range (NotDetected), Oxycodone Screen Not Detected , Range (NotDetected), Propoxyphene Screen Not Detected , Range (NotDetected), Drug Screen Cutoff , Range (), The Checkr Profile-V Panel for Qualitative Drugs of Abuse assays are for, presumptive screening testing only. The drug class and detection limits, are as follows: Drug Class Detection Limit Amphetamine , 500 ng/mL* Barbiturates 200 ng/mL , Benzodiazepines 150 ng/mL* Cocaine 150 ng/mL*, Methamphetamine 500 ng/mL* Methadone 200, ng/mL* Opiates 100 ng/mL* Oxycodone , 100 ng/mL PCP 25 ng/mL Propoxyphene , 300 ng/mL Tricyclic Antidepressants 300 ng/mL Cannabinoids (THC) , 50 ng/mL Tests which yield a presumptive positive result must be , tested using a more specific alternate chemical method in &a-1R&a+25V*p+0X*[id number]*c202B*c15G*c2P*p-0X&a-25V&a+1R Name: Paul Alexandre : 1985 1 MedRec: [id number] AcctNum: [id number] Prepared: SatMar 28, 2016 23:22 by Interface Page 11 of 12 pMD [facility] RECORD order to obtain, a confirmed analytical result. Additional confirmation and identification, may be ordered on a routine basis, if desired. Presumptive positive urines, are held for two weeks. . (16:36 LHOD) Scott: CHALINO=JOVANNI Orta, Jaime CJLISA=JOVANNI Stanton, Kendy EVANS=JOVANNI Vizcaino, Meenakshi LHOD=MD Kerrie, Ezra MCRS=JOVANNI Pearson, Sylvester &a-1R&a+25V*p+0X*k2498G*c202B*c15G*c2P*p-0X&a-25V&a+1R Name: Paul Alexandre : 1985 M31 MedRec: [id number] AcctNum: [id number] Prepared: SatMar 28, 2016 23:22 by Interface Page 12 of 12 pMD [facility]
== END 2016-03-28 22:43 ==
LOC: MADERS 14:27
DX: T43.022A Poisoning by tetracyclic antidepressants, intentional self-harm, initial encounter (principal); I10 Essential (primary) hypertension; F31.9 Bipolar disorder, unspecified; F17.210 Nicotine dependence, cigarettes, uncomplicated; Z79.899 Other long term (current) drug therapy
CPT/HCPCS: 36415; 80053; 80306; 80307; 81003; 85025; 93005; 96361; 96374; J2405; J7050

== ENCOUNTER 2016-05-15 10:24 | Emergency (ER) | payer MEDICAID ==
[2016-05-15 11:12] LABS: #Eosinphils 0.2 thou/uL (0.0-0.7); #Lymphocytes 1.7 thou/uL (1.20-3.40); #Monocytes 0.7 thou/uL (0.11-0.59); #Neutrophils 3.8 thou/uL (1.40-6.50); %Basophils 0.6 % (0.0-1.0); %Eosinophils 3.8 % (0.0-10.0); %Lymphocytes 26.5 % (21.0-51.0); %Monocytes 10.3 % (0.0-10.0); %Neutrophils 58.9 % (42.0-75.0); Hemoglobin 15.2 g/dL (14.0-18.0); Mean Corpuscular HGB CONC 33.8 g/dL (32.0-36.0); Mean Corpuscular Volume 88.5 fl (80.0-94.0); Mean Platelet Volume 7.2 fL (7.4-10.4); Platelet Count 216 thou/uL (130-400); RBC Distribution Width 11.8 % (11.5-14.5); Red Blood Cell (RBC) Count 5.09 mill/uL (4.70-6.10); White Blood Cell (WBC) Count 6.5 thou/uL (4.8-10.8)
[2016-05-15 11:29] LABS: Acetaminophen Less than 3.0 mcg/mL (10.0-30.0); Alcohol Less than 10 mg/dL (Less than 10); Anion Gap 14 mmol/L (10-20); BUN (Urea Nitrogen) 12 mg/dL (8.9-20.6); Calc. Creatinine Clearance 0 mL/min (70-130); Calcium 8.8 mg/dL (7.8-10.44); Carbon Dioxide 25 mmol/L (22-29); Chloride 106 mmol/L (98-107); Estimated GFR-MDRD Greater than 90; Glucose 93 mg/dL (70-105); Potassium 3.5 mmol/L (3.5-5.1); Salicylate Less than 5.0 mg/dL (15.0-30.0); Sodium 141 mmol/L (136-145)
[2016-05-15] MEDS ORDERED: Adacel (T-DAP) 0.5 ML VIAL ONE (11:41)
[2016-05-15] MEDS ORDERED: Amoxicillin/Potassium Clav 875 MG TAB ONE (11:41)
[2016-05-15 12:08] LABS: Amphetamine Not Detected (NotDetected); Barbiturates Screen Not Detected (NotDetected); Benzodiazepine Screen Not Detected (NotDetected); Cocaine Metabolite Screen Not Detected (NotDetected); Medtox Control Line Valid? VALID (VALID); Methadone Not Detected (NotDetected); Methamphetamine Not Detected (NotDetected); Opiate Screen Not Detected (NotDetected); Oxycodone Screen Not Detected (NotDetected); Phencyclidine (PCP) Not Detected (NotDetected); THC/Cannabinoid Screen Detected (NotDetected); Tricyclic Screen Not Detected (NotDetected)
[2016-05-15] MEDS ORDERED: Triple Antibiotic Oint 1 GM Packet ONE (15:42)
== END 2016-05-15 16:04 ==
LOC: MADERS 10:24
DX: R45.851 Suicidal ideations (principal); I10 Essential (primary) hypertension; F41.9 Anxiety disorder, unspecified; F17.210 Nicotine dependence, cigarettes, uncomplicated; Z79.899 Other long term (current) drug therapy
CPT/HCPCS: 36415; 80048; 80306; 80307; 84443; 85025; 90471; 90715

== ENCOUNTER 2016-06-20 14:52 | Emergency (ER) | payer MEDICAID ==
[2016-06-20 15:30] LABS: #Basophils 0.1 thou/uL (0.0-0.2); #Eosinphils 0.1 thou/uL (0.0-0.7); #Lymphocytes 1.4 thou/uL (1.20-3.40); #Monocytes 0.3 thou/uL (0.11-0.59); #Neutrophils 5.4 thou/uL (1.40-6.50); %Basophils 0.8 % (0.0-1.0); %Eosinophils 1.6 % (0.0-10.0); %Lymphocytes 19.3 % (21.0-51.0); %Monocytes 4.6 % (0.0-10.0); %Neutrophils 73.7 % (42.0-75.0); Hemoglobin 15.2 g/dL (14.0-18.0); Mean Corpuscular HGB CONC 33.6 g/dL (32.0-36.0); Mean Corpuscular Hemoglobin 29.7 pg (27.0-31.0); Mean Corpuscular Volume 88.3 fl (80.0-94.0); Mean Platelet Volume 7.5 fL (7.4-10.4); Platelet Count 221 thou/uL (130-400); RBC Distribution Width 11.5 % (11.5-14.5); Red Blood Cell (RBC) Count 5.13 mill/uL (4.70-6.10); White Blood Cell (WBC) Count 7.3 thou/uL (4.8-10.8)
[2016-06-20 15:43] LABS: ALT (SGPT) 15 U/L (0-55); AST (SGOT) 13 U/L (5-34); Albumin 4.1 g/dL (3.5-5.0); Alcohol Less than 10 mg/dL (Less than 10); Alkaline Phosphatase 57 U/L (40-150); Anion Gap 15 mmol/L (10-20); BUN (Urea Nitrogen) 13 mg/dL (8.9-20.6); Bilirubin, Total 0.3 mg/dL (0.2-1.2); Calc. Creatinine Clearance 0 mL/min (70-130); Calcium 9.1 mg/dL (7.8-10.44); Carbon Dioxide 23 mmol/L (22-29); Chloride 105 mmol/L (98-107); Estimated GFR-MDRD Greater than 90; Globulin 2.4 g/dL (2.4-3.5); Glucose 130 mg/dL (70-105); Potassium 3.9 mmol/L (3.5-5.1); Protein, Total 6.5 g/dL (6.0-8.3); Sodium 139 mmol/L (136-145)
[2016-06-20 16:37] LABS: Amphetamine Not Detected (NotDetected); Barbiturates Screen Not Detected (NotDetected); Benzodiazepine Screen Detected (NotDetected); Cocaine Metabolite Screen Not Detected (NotDetected); Medtox Control Line Valid? VALID (VALID); Methadone Not Detected (NotDetected); Methamphetamine Not Detected (NotDetected); Opiate Screen Not Detected (NotDetected); Oxycodone Screen Not Detected (NotDetected); Phencyclidine (PCP) Not Detected (NotDetected); THC/Cannabinoid Screen Detected (NotDetected); Tricyclic Screen Not Detected (NotDetected)
== END 2016-06-20 20:30 | disposition home or self-care (01) ==
LOC: MADERS 14:52
DX: R45.851 Suicidal ideations (principal); I10 Essential (primary) hypertension; F31.9 Bipolar disorder, unspecified; F41.9 Anxiety disorder, unspecified; F20.9 Schizophrenia, unspecified; F17.210 Nicotine dependence, cigarettes, uncomplicated
CPT/HCPCS: 80053; 80306; 80307; 85025; 99285

== ENCOUNTER 2017-06-02 18:35 | Emergency (ER) | payer OTHER ==
[2017-06-02 19:19] LABS: #Basophils 0.1 thou/uL (0.0-0.2); #Eosinphils 0.2 thou/uL (0.0-0.7); #Lymphocytes 2.1 thou/uL (1.20-3.40); #Monocytes 0.5 thou/uL (0.11-0.59); #Neutrophils 4.1 thou/uL (1.40-6.50); %Basophils 0.7 % (0.0-1.0); %Eosinophils 2.8 % (0.0-10.0); %Lymphocytes 30.2 % (21.0-51.0); %Monocytes 7.6 % (0.0-10.0); %Neutrophils 58.8 % (42.0-75.0); Hemoglobin 16.3 g/dL (14.0-18.0); Mean Corpuscular HGB CONC 33.3 g/dL (32.0-36.0); Mean Corpuscular Hemoglobin 30.3 pg (27.0-31.0); Mean Corpuscular Volume 90.9 fl (80.0-94.0); Mean Platelet Volume 6.2 fL (7.4-10.4); Platelet Count 259 thou/uL (130-400); Red Blood Cell (RBC) Count 5.37 mill/uL (4.70-6.10); White Blood Cell (WBC) Count 6.9 thou/uL (4.8-10.8)
[2017-06-02 19:27] LABS: Acetaminophen Less than 6.0 mcg/mL (10.0-30.0); Alcohol Less than 10 mg/dL (Less than 10); Anion Gap 16 mmol/L (10-20); BUN (Urea Nitrogen) 15 mg/dL (8.9-20.6); Calc. Creatinine Clearance 0 mL/min (70-130); Calcium 9.3 mg/dL (7.8-10.44); Carbon Dioxide 24 mmol/L (22-29); Chloride 106 mmol/L (98-107); Estimated GFR-MDRD 87; Glucose 102 mg/dL (70-105); Potassium 3.9 mmol/L (3.5-5.1); Salicylate Less than 8.0 mg/dL (15.0-30.0); Sodium 142 mmol/L (136-145)
[2017-06-02 19:54] LABS: Amphetamine Not Detected (NotDetected); Barbiturates Screen Not Detected (NotDetected); Benzodiazepine Screen Not Detected (NotDetected); Cocaine Metabolite Screen Not Detected (NotDetected); Medtox Control Line Valid? VALID (VALID); Methadone Not Detected (NotDetected); Methamphetamine Not Detected (NotDetected); Opiate Screen Not Detected (NotDetected); Oxycodone Screen Not Detected (NotDetected); Phencyclidine (PCP) Not Detected (NotDetected); THC/Cannabinoid Screen Detected (NotDetected); Tricyclic Screen Not Detected (NotDetected)
== END 2017-06-03 07:36 ==
LOC: MADERS 18:35
DX: R45.851 Suicidal ideations (principal); I10 Essential (primary) hypertension; F20.9 Schizophrenia, unspecified; F17.210 Nicotine dependence, cigarettes, uncomplicated; F31.9 Bipolar disorder, unspecified; Z79.899 Other long term (current) drug therapy
CPT/HCPCS: 36415; 80048; 80306; 80307; 85025; 99285